=== PATIENT | female | born 1955 | race Caucasian/White ===

== ENCOUNTER 2021-08-16 23:06 | Observation (INO) | payer SELFPAY ==
[2021-08-16 23:07] VITALS: BP 124/54; PULSE 96; RESP 20; TEMP 36.6; O2SAT 93; BMI 29.2
[2021-08-16 23:10] VITALS: O2SAT 88
--- NOTE | 2021-08-16 23:10 | ED.RN ---
PATIENT'S OXGYEN SATURATION ORIGINALLY WAS 88-89% ON ROOM AIR. ONCE PATIENT SAT FOR A FEW MINUTES OXYGEN SATURATION UP TO 93%.
[2021-08-17] VITALS (17 sets, daily range): BP systolic 95–118; BP diastolic 41–80; PULSE 78–105; RESP 18–22; TEMP 36.5–36.9; O2SAT 94–98; BMI 31.1
--- NOTE | 2021-08-17 01:40 | RAD_ITS ---
STUDY: X-RAY CHEST REASON FOR EXAM: Female, 66 years old. dyspnea TECHNIQUE: Single AP portable view of the chest. COMPARISON: None. FINDINGS: Ill-defined subpleural groundglass opacities are seen more prominent in the lung bases , may represent atypical pneumonia or viral pneumonia (COVID-19 ?). There is small right pleural effusion. Normal size heart. Normal mediastinum and daniel. Normal visualized pulmonary arteries. Normal visualized aortic arch and descending thoracic aorta. Normal visualized thoracic spine. Normal visualized ribs, clavicles, and shoulders. There is no demonstrated abnormality of the visualized soft tissue structures of the upper abdomen. RAD/Chest 1 View (Portable) IMPRESSION: Ill-defined subpleural groundglass opacities are seen more prominent in the lung bases , may represent atypical pneumonia or viral pneumonia (COVID-19 ?). There is small right pleural effusion. Electronically Signed: Chhaya Pascual MD at 2:13 EDT ,
--- NOTE | 2021-08-17 01:41 | EKG12_ITS ---
Test Reason : SOB Blood Pressure : / mmHG Vent. Rate : 088 BPM Atrial Rate : 182 BPM P-R Int : 000 ms QRS Dur : 086 ms QT Int : 398 ms P-R-T Axes : 000 074 028 degrees QTc Int : 481 ms Atrial fibrillation Nonspecific ST and T wave abnormality Abnormal ECG Confirmed by MARCEL GIVENS, STEPHANIE ([id number]), sports editor ESTELLA KELLY ([id number]) on 08/21/2021 9:49:51 AM Referred By: Confirmed By:KOJO ROD MD
[2021-08-17 02:03] LABS: Basophil# 0.05 X10^3/uL; Basophil% 0.5 % (0-1); Eosinophil# 0.12 X10^3/uL; Eosinophils% 1.3 % (0-5); Hematocrit 36.9 % (37-47); Hemoglobin 12.5 g/dL (12.0-15.0); Lymphocyte % 21.9 % (19-41); Mean Corp Hgb Conc 33.9 g/dL (32-36); Mean Corpuscular Hgb 32.1 pg (27.0-32.0); Mean Corpuscular Volume 94.6 fL (81-99); Mean Platelet Vol. 10.5 fl (6.2-12.0); Monocyte# 2.25 X10^3/uL; Monocyte% 23.5 % (0-10); NRBC Flagged by Analyzer 0 % (0-5); Neutrophil # 4.95 X10^3/uL (2.7-7.7); Neutrophil % 51.8 % (47-70); POSITIVE DIFFERENTIAL YES; Platelet Count 148 K/mm3 (150-450); RBC Distribution Width CV 14.7 % (11.6-14.6); RBC Distribution Width SD 51.8 fl (35.1-43.9); White Blood Count 9.6 K/mm3 (4.4-11.0)
[2021-08-17 02:08] LABS: Differential Indicated SCAN CRITERIA MET
[2021-08-17 02:20] LABS: International Normalized Ratio 1.3; Partial Thromboplast Time 33.5 Seconds (24.1-36.2); Prothrombin Time (Protime)PT. 15.3 SECONDS (11.7-14.9)
[2021-08-17 02:22] LABS: BNP,B-Type NATRIURETIC PEPTIDE 405.7 pg/mL (0-100)
[2021-08-17 02:24] LABS: Anion Gap 9 (5-15); BUN 13 mg/dL (7-18); BUN/Creat Ratio 13.7 RATIO (10-20); Calcium,Total 10.2 mg/dL (8.5-10.1); Chloride 104 mmol/L (98-107); Creatinine, Serum 0.95 mg/dL (0.55-1.02); EST Glomerular Filtration Rate 63 mL/min (>60); Est Glom Filt Rate - Afr Amer 76 mL/min (>60); Estimated Creatinine Clearance 46.07 ml/min; Glucose 106 mg/dL (74-106); Potassium 3.6 mmol/L (3.5-5.1); Sodium Level 135 mmol/L (136-145); Troponin-I HS 5 pg/mL (3.0-54.0)
[2021-08-17 02:25] LABS: Lactic Acid 1.3 mmol/L (0.4-1.9)
[2021-08-17 02:30] LABS: Procalcitonin 0.09 ng/mL (0.00-0.09)
[2021-08-17] MEDS: Ketorolac 15 MG/ML Vial IV (03:54)
--- NOTE | 2021-08-17 04:04 | HP.PCM.HOS_ITS ---
HPI - General General Date of Admission: 08/17/21 HPI Narrative MICHAEL TAYLOR, is a 66 F with a significant history of mitral valve prolapse; asthma; who presents to the emergency department with persistent shortness of breath that started on August 01 2021. Patient has completed a course of antibiotics for pneumonia. Associated with symptom is a productive cough which later became blood tinged. Further patient has nausea and vomiting. Because of pain in her left neck and left arm patient was referred to cardiology. Cardiology ordered a CTA chest scan which showed bilateral pleural effusion with right worse than left. Also the CTA chest showed some lytic lesions. Further CTA showed partial collapse of her right lung. Patient was referred to Dr. Robertson, exchange operator at [facility] and her appointment is on 08/17/2021 in the a.m. Of note patient reports that she and her got COVID-19 infection in June. At that time she coughed so hard that she broke her ribs. Since patient had Covid she has been monitoring her oxygen saturation at home. On the week of presentation her oxygen saturation at home was in the 80s. Emergent department doctor reported that on presentation patient oxygen saturation with ambulation was 87% on room air. Patient reports a history of a very small pericardial effusion with pneumonia in the past. [facility] Medical History Benign essential hypertension Brain TIA Diastolic heart failure Hyperlipidemia Insomnia Leukocytosis Mitral regurgitation Mitral valve prolapse PAF (paroxysmal atrial fibrillation) Pericardial effusion Pulmonary HTN Reactive airway disease Thoracic lymphadenopathy Thyroid lesion Home Medications amlodipine 5 mg tablet 5 mg PO DAILY 08/16/21 [History Last Taken Unknown] aspirin 81 mg tablet,delayed release 81 mg PO DAILY 08/16/21 [History Last Taken Unknown] furosemide 20 mg tablet 20 mg PO DAILY 08/16/21 [History Last Taken Unknown] levalbuterol tartrate 45 mcg/actuation aerosol inhaler 2 inh INHALATION Q4H PRN g 08/16/21 [History Last Taken Unknown] lorazepam 0.5 mg tablet 0.5 mg PO QHS 08/16/21 [History Last Taken Unknown] metoprolol tartrate 50 mg tablet 50 mg PO BID 08/16/21 [History Last Taken Unknown] mometasone 1 inh INHALATION QPM 08/16/21 [History Last Taken Unknown] spironolactone 25 mg tablet 12.5 mg PO DAILY tab 08/16/21 [History Last Taken Unknown] Allergy/AdvReac Type Severity Reaction Status Date / Time albuterol Allergy Unknown Tachycardia Verified 08/16/21 23:12 duloxetine [From Cymbalta] Allergy Unknown Unknown Verified 08/16/21 23:12 imipramine [From Tofranil] Allergy Unknown Unknown Verified 08/16/21 23:12 lisinopril Allergy Unknown Irregular Verified 08/16/21 23:12 Heart Beat nortriptyline [From Pamelor] Allergy Unknown Unknown Verified 08/16/21 23:12 pseudoephedrine Allergy Unknown Hypertensio Verified 08/16/21 23:12 [From Sudafed] n Family History Brother Hx of CABG, Onset Age: 58 Brother Hx of CABG, Onset Age: 68 Mother Myocardial infarction, Onset Age: 56 Surgical History H/O right heart catheterization Social History Smoking Status: Never smoker alcohol intake: never substance use type: does not use ROS ROS Narrative Constitutional: Reports weight loss of about 10 pounds that started after patient had COVID-19 infection in June 2021. Reports anorexia denies fever, chills. Eyes: Denies blurry vision, change in eye color, change in vision, discharge from eye(s), double vision, erythema, eye pain, loss of vision or other HEENT: Denies abnormal hearing, dysphagia, ear pain, epistaxis, headache(s), hearing loss, nasal congestion, nasal discharge, post nasal drip, sinus pressure, sore throat or other Cardiovascular: Report palpitations. Reports orthopnea. Denies paroxysmal n octurnal dyspnea. Respiratory/Chest: Reports productive cough of blood-tinged sputum. Reports sh ortness of breath. Report wheezes. Gastrointestinal: Denies abdominal pain, coffee ground emesis, constipation, diarrhea, dyspepsia, hematemesis, hematochezia, loose stools, melena, nausea, vomiting or other Genitourinary: Denies burning urination, difficulty urinating, dysuria, hematuria, nocturia, urinary frequency, urinary hesitancy, urinary incontinence, urinary urgency or other Musculoskeletal: Denies arthralgias, back pain, joint pain, joint stiffness, joint swelling, myalgias, neck pain or other Neurologic: Denies abnormal gait, abnormal speech, confusion, disequilibrium, dizziness, focal weakness, headache(s), numbness, paresthesias, seizure-like activity, seizures, syncope, tingling, tremor(s) or other Psychiatric: Denies anxiety, depression, homicidal ideation, suicidal ideation or other Endocrinology: Denies change in body appearance, cold intolerance, excessive sweating, heat intolerance, polydipsia, polyuria or other Hematologic/Lymphatic: Denies anemia, easy bleeding, easy bruising, lymphadenopathy or other Integumentary: Denies rashes Allergic/Immunologic: Denies rhinitis, hives, eczema, or other Vital Signs Vital Signs Vital Signs: 08/16/21 23:07 08/16/21 23:10 08/17/21 00:54 Temperature 97.9 F Temperature Source Temporal Pulse Rate 96 95 Respiratory Rate 20 H 21 H Respiratory Effort Normal Respiratory Depth Normal Respiratory Pattern Normal Blood Pressure 124/54 H 116/80 Blood Pressure Mean 77 92 Pulse Ox 93 88 97 Oxygen Delivery Method Room Air Room Air Room Air Oxygen Flow Rate (L/min) 08/17/21 03:08 Temperature Temperature Source Pulse Rate 86 Respiratory Rate 18 Respiratory Effort Respiratory Depth Respiratory Pattern Blood Pressure 108/66 Blood Pressure Mean 80 Pulse Ox 97 Oxygen Delivery Method Nasal Cannula Oxygen Flow Rate (L/min) 2 Weight Weight: 72.575 kg Body Mass Index (BMI) 29.2 Results Lab / Micro Data Result Diagrams: 08/17/21 01:55 08/17/21 01:55 Labs: Laboratory Results - last 24 hr 08/17/21 01:55: WBC 9.6, RBC 3.90 L, Hgb 12.5, Hct 36.9 L, MCV 94.6, MCH 32.1 H, MCHC 33.9, RDW Std Deviation 51.8 H, RDW Coeff of Herminio 14.7 H, Plt Count 148 L, MPV 10.5, Immature Gran % (Auto) 1.000 H, Neut % (Auto) 51.8, Lymph % (Auto) 21.9, [place] % (Auto) 23.5 H, Eos % (Auto) 1.3, Baso % (Auto) 0.5, Absolute Neuts (auto) 5.0, Absolute Lymphs (auto) 2.10, Nucleated RBC % 0 08/17/21 01:55: Sodium 135 L, Potassium 3.6, Chloride 104, Carbon Dioxide 22.0, Anion Gap 9, BUN 13, Creatinine 0.95, Estim Creat Clear Calc 46.07, Est GFR (MDRD) Af Amer 76, Est GFR (MDRD) Non-Af 63, BUN/Creatinine Ratio 13.7, Glucose 106, Calcium 10.2 H, Magnesium 2.0, Troponin I High Sens 5 08/17/21 01:55: Lactic Acid 1.3 08/17/21 01:55: B-Natriuretic Peptide 405.7 H 08/17/21 01:55: Procalcitonin 0.09 08/17/21 01:55: PT 15.3 H, INR 1.3, APTT 33.5 Radiology Impression Chest X-Ray 08/17/21 01:40 IMPRESSION: Ill-defined subpleural groundglass opacities are seen more prominent in the lung bases , may represent atypical pneumonia or viral pneumonia (COVID-19 ?). There is small right pleural effusion. Electronically Signed: Chhaya Pascual MD at 2:13 EDT , Assessment & Plan Assessment/Plan (1) Pleural effusion: PLAN: Pleural effusion Chest x-ray on presentation was visualized and independently interpreted and I agree with radiologist interpretation. CTA reports that on [facility] on 08/09/[address] showed moderate right pleural effusion and small left pleural effusion with adjacent compressive atelectasis. Mucoid impaction of right lower lobe bronchus with resultant partial collapse of the right lower lobe. Also lytic lesions were s een. CBC reviewed showed normal white count but with bandemia of 1% and monocytosis of 23.5%. We will observe patient at progressive care unit. Ultrasound of right pleural space with diagnostic studies ordered. Serum LDH and protein ordered to check light criteria. Cytology of pleural fluid ordered. PT/INR review showed a PT of 15.3, INR of 1.3. Mucinex ordered Pulmonology consult. Recently started on Lasix dose and spironolactone by cardiology, continued. Atrial fibrillation with controlled ventricular response Placed on progressive care unit on telemetry. Metoprolol continued. Currently patient is on aspirin and is having further discussion with cardiology on starting anticoagulation. DVT prophylaxis: SCD ordered Charges/Coding Visit Charges OBSV E&M: 52352 Initial observation care L3
--- NOTE | 2021-08-17 04:15 | EDS_ITS ---
HPI History of Present Illness Chief Complaint: Shortness of Breath Narrative Narrative: Patient is a 66-year-old female who was recently diagnosed with atrial fibrillation in the past few weeks. She states that she has been having increased shortness of breath over the past few weeks as well and was sent to an outside hospital about 7 days ago where she had a CTA of her chest. That showed fluid in her lung which could be inflammatory or infectious in nature. Patient states she was started on antibiotics and Lasix secondary to this. She states she been taking the medications as directed but has been feeling increased shortness of breath over the last 1 to 2 days. She does state the symptoms seem to worsen if she ambulates or lies flat. The patient states that she is not on oxygen at home and has had no history of lung disorder in the past [facility] Medical History Benign essential hypertension Brain TIA Diastolic heart failure Hyperlipidemia Insomnia Leukocytosis Mitral regurgitation Mitral valve prolapse PAF (paroxysmal atrial fibrillation) Pericardial effusion Pulmonary HTN Reactive airway disease Thoracic lymphadenopathy Thyroid lesion Home Medications amlodipine 5 mg tablet 5 mg PO DAILY 08/16/21 [History Last Taken Unknown] aspirin 81 mg tablet,delayed release 81 mg PO DAILY 08/16/21 [History Last Taken Unknown] furosemide 20 mg tablet 20 mg PO DAILY 08/16/21 [History Last Taken Unknown] levalbuterol tartrate 45 mcg/actuation aerosol inhaler 2 inh INHALATION Q4H PRN g 08/16/21 [History Last Taken Unknown] lorazepam 0.5 mg tablet 0.5 mg PO QHS 08/16/21 [History Last Taken Unknown] metoprolol tartrate 50 mg tablet 50 mg PO BID 08/16/21 [History Last Taken Unknown] mometasone 1 inh INHALATION QPM 08/16/21 [History Last Taken Unknown] spironolactone 25 mg tablet 12.5 mg PO DAILY tab 08/16/21 [History Last Taken Unknown] Allergy/AdvReac Type Severity Reaction Status Date / Time albuterol Allergy Unknown Tachycardia Verified 08/17/21 06:43 duloxetine [From Cymbalta] Allergy Unknown Unknown Verified 08/17/21 06:43 imipramine [From Tofranil] Allergy Unknown Unknown Verified 08/17/21 06:43 lisinopril Allergy Unknown Irregular Verified 08/17/21 06:43 Heart Beat nortriptyline [From Pamelor] Allergy Unknown Unknown Verified 08/17/21 06:43 pseudoephedrine Allergy Unknown Hypertensio Verified 08/17/21 06:43 [From Sudafed] n Family History Brother Hx of CABG, Onset Age: 58 Brother Hx of CABG, Onset Age: 68 Mother Myocardial infarction, Onset Age: 56 Surgical History H/O right heart catheterization Social History Smoking Status: Never smoker alcohol intake: never substance use type: does not use ROS ROS ED Constitutional Constitutional ED: Denies chills or fever(s) ENT ENT ED: Denies sore throat Cardiovascular Cardiovascular: Reports palpitations; Denies chest pain Respiratory/Chest Respiratory/Chest: Reports cough, dyspnea, dyspnea on exertion and sputum Gastrointestinal Gastrointestinal: Denies abdominal pain, diarrhea, nausea or vomiting Genitourinary Genitourinary ED: Denies dysuria Musculoskeletal Musculoskeletal: Denies myalgias Integumentary Denies rash Neurologic Neurologic: Denies headache(s) Hematologic/Lymphatic Hematologic/Lymphatic: Denies easy bleeding or easy bruising EXAM Physical Exam Const Vital Signs: 08/16/21 23:07 08/16/21 23:10 08/17/21 00:54 Temperature 97.9 F Temperature Source Temporal Pulse Rate 96 95 Respiratory Rate 20 H 21 H Respiratory Effort Normal Respiratory Depth Normal Respiratory Pattern Normal Blood Pressure 124/54 H 116/80 Blood Pressure Mean 77 92 Pulse Ox 93 88 97 Oxygen Delivery Method Room Air Room Air Room Air Oxygen Flow Rate (L/min) 08/17/21 03:08 Temperature Temperature Source Pulse Rate 86 Respiratory Rate 18 Respiratory Effort Respiratory Depth Respiratory Pattern Blood Pressure 108/66 Blood Pressure Mean 80 Pulse Ox 97 Oxygen Delivery Method Nasal Cannula Oxygen Flow Rate (L/min) 2 Positive well nourished, well developed and obese General Appearance ED: well developed Nutritional Appearance: obese HEENT Reports dry mucous membranes Mouth ED: Yes dry mucous membranes Mouth: dry mucous membranes Eyes PERRL and EOMs intact bilaterally Neck supple and no JVD Resp Resp Narrative: Patient has diminished breath sounds throughout with crackles present in the bilateral lower lobes and expiratory wheeze noted in the upper lobes bilaterally. She does have mild tachypnea and slight accessory muscle use as well Cardio regular rate Rate: other Other Details: Irregularly irregular rhythm with regular rate GI normal to inspection, nondistended, normoactive bowel sounds, non-tender, non- distended and no masses Auscultation: normoactive bowel sounds Palpation: soft Extremity Extremity Narrative: Trace pitting edema to the bilateral lower extremities that is equal and symmetric negative Homans' sign bilaterally Neuro oriented x3 and CN's II-XII intact bilaterally Sensorium / Orientation: alert Motor Exam: strength 5/5 throughout Psych mental status grossly normal Skin no rashes or lesions noted MDM MDM MDM Narrative Medical decision making narrative: Patient presented to the ER with mild respiratory distress such as tachypnea and accessory muscle use. Her A. fib is a recent diagnosis but has been known and currently she is rate controlled. Her pulse ox upon walking dropped to 87% and then improved to 92% at rest. However as she has known pleural effusion from her previous hospital visit approximately 7 days ago with CTA I have concern symptoms are worsening and therefore elected perform repeat labs and a chest x-ray. Chest x-ray can firmed that the pleural effusions are still present. It did question a possible atypical pneumonia but patient is afebrile does not have a white count or elevated pro calcitonin level. The CT also showed lytic lesions in the spine and chest most concerning for malignancy. Therefore at this time based on her laboratory studies and this read I feel that the fluid in her lungs is most likely from malignancy and not infection. As patient does require oxygen with ambulation I do not feel it is safe for her to be discharged and therefore should be kept in the hospital for further care Lab Data Attestation: I reviewed the patient's lab results. Labs: Laboratory Results - last 24 hr 08/17/21 08/17/21 08/17/21 01:55 01:55 01:55 WBC 9.6 RBC 3.90 L Hgb 12.5 Hct 36.9 L MCV 94.6 MCH 32.1 H MCHC 33.9 RDW Std Deviation 51.8 H RDW Coeff of Herminio 14.7 H Plt Count 148 L MPV 10.5 Immature Gran % (Auto) 1.000 H Neut % (Auto) 51.8 Lymph % (Auto) 21.9 [place] % (Auto) 23.5 H Eos % (Auto) 1.3 Baso % (Auto) 0.5 Absolute Neuts (auto) 5.0 Absolute Lymphs (auto) 2.10 Nucleated RBC % 0 PT INR APTT Sodium 135 L Potassium 3.6 Chloride 104 Carbon Dioxide 22.0 Anion Gap 9 BUN 13 Creatinine 0.95 Estim Creat Clear Calc 46.07 Est GFR (MDRD) Af Amer 76 Est GFR (MDRD) Non-Af 63 BUN/Creatinine Ratio 13.7 Glucose 106 Lactic Acid 1.3 Calcium 10.2 H Magnesium 2.0 Troponin I High Sens 5 B-Natriuretic Peptide Procalcitonin 08/17/21 08/17/21 08/17/21 01:55 01:55 01:55 WBC RBC Hgb Hct MCV MCH MCHC RDW Std Deviation RDW Coeff of Herminio Plt Count MPV Immature Gran % (Auto) Neut % (Auto) Lymph % (Auto) [place] % (Auto) Eos % (Auto) Baso % (Auto) Absolute Neuts (auto) Absolute Lymphs (auto) Nucleated RBC % PT 15.3 H INR 1.3 APTT 33.5 Sodium Potassium Chloride Carbon Dioxide Anion Gap BUN Creatinine Estim Creat Clear Calc Est GFR (MDRD) Af Amer Est GFR (MDRD) Non-Af BUN/Creatinine Ratio Glucose Lactic Acid Calcium Magnesium Troponin I High Sens B-Natriuretic Peptide 405.7 H Procalcitonin 0.09 Radiography Diagnostic Testing: Clinical Impression(s) from Imaging Studies Chest X-Ray 08/17/21 01:40 IMPRESSION: Ill-defined subpleural groundglass opacities are seen more prominent in the lung bases , may represent atypical pneumonia or viral pneumonia (COVID-19 ?). There is small right pleural effusion. Electronically Signed: Chhaya Pascual MD at 2:13 EDT , Discharge Plan Dx/Rx/DC Orders Clinical Impression: Pleural effusion, Atrial fibrillation, Dyspnea Disposition Disposition: Acute Care Hospital [facility] Discharge Date/Time: 08/17/21 05:03
--- NOTE | 2021-08-17 05:00 | US_ITS ---
PROCEDURE: ULTRASOUND GUIDED THORACENTESIS. CLINICAL INDICATION: Pleural effusion. PHYSICIAN: Winston Salcedo DO MEDICATIONS: 2% lidocaine administered subcutaneously for local anesthesia. ACCESS SITE: Right lower thorax, posterior approach. CATHETER: 5 [place] Citizen thoracentesis needle/catheter system. FLUID: Approximately 570 mL of clear yellow pleural fluid removed. COMPLICATIONS: None immediate. The risks, benefits, and alternatives to the procedure and sedation were explained to the patient. The specific risks of bleeding, infection, and pneumothorax requiring chest tube insertion were discussed and accepted. Written informed consent was obtained. PROCEDURE: Ultrasonographic evaluation of the right lower pleural space was carried out. An adequate pocket was identified. The patient was placed in the sitting, upright position. The overlying skin was prepped and draped in sterile fashion. 2% lidocaine was administered subcutaneously for local anesthesia. Under ultrasound guidance, a 5 [place] Citizen thoracentesis needle/catheter system was advanced into the right posterior lower pleural fluid collection. The inner stylet was removed and there was spontaneous flow of pleural fluid. Approximately 570 mL of clear yellow fluid was manually aspirated. The catheter was removed. Hemostasis was achieved and a sterile dressing was applied. 120 cc of the collected sample was sent to the laboratory for analysis, as requested by the referring clinician. The patient tolerated the procedure well, without immediate complications. A chest x-ray was ordered. No pneumothorax on the chest x-ray which is dictated separately. US/Thoracentesis W US IMPRESSION: Successful ultrasound-guided diagnostic and therapeutic thoracentesis. Electronically Signed: Winston Salcedo, at 15:03 EDT ,
[2021-08-17] MEDS: Budesonide Respules 0.5 MG/2 ML AMPUL.NEB. INHALATION ×2 (07:04→20:24)
[2021-08-17] MEDS: guaiFENesin 1,200 MG Tablet 1200 MG PO ×2 (09:02→21:01)
[2021-08-17] MEDS: Acetaminophen 325 MG Tablet 650 MG PO ×3 (09:02→23:54)
--- NOTE | 2021-08-17 09:33 | ECHOD_ITS ---
Reason For Study: PHTN Procedure This was a 2D Doppler, Color Flow transthoracic echocardiogram. Exam performed portable in patient room. Left Ventricle Normal LV size. The estimated ejection fraction is 60 %. Unable to assess diastolic dysfunction. No regional wall motion abnormalities noted. Right Ventricle Normal RV size. Normal systolic function. Atria The left atrium is moderately enlarged. The right atrium is moderately enlarged. No doppler evidence for ASD. Mitral Valve There is no mitral valve stenosis. Trivial mitral valve insufficiency. Tricuspid Valve There is no tricuspid stenosis. Mild tricuspid valve insufficiency. Pulmonary artery systolic pressure is 45 mmHg. Aortic Valve Trisinus/trileaflet aortic valve. There is no aortic stenosis. No aortic valve insufficiency. Pulmonic Valve There is no pulmonic valvular stenosis. No pulmonic valve insufficiency. Great Vessels Normal aortic root. Pericardium/Pleural No pericardial effusion. MMode/2D Measurements & Calculations LVIDd: 4.2 cm IVSd: 0.99 cm Ao root diam: 2.9 cm LVIDs: 2.7 cm LVPWd: 0.99 cm RVDd: 3.9 cm FS: 35.3 % LAV(MOD-bp): 78.9 ml LVAd ap4: 22.2 cm2 SV(MOD-sp4): 35.3 ml LAV(MOD-bp) Indexed: 44.2 ml/m2 LVLd ap4: 7.4 cm LAV(MOD-sp2): 68.8 ml EDV(MOD-sp4): 55.6 ml LAV(MOD-sp4): 90.3 ml EDV(sp4-el): 56.2 ml LVAs ap4: 12.5 cm2 LVLs ap4: 6.8 cm ESV(MOD-sp4): 20.4 ml ESV(sp4-el): 19.5 ml EF(MOD-sp4): 63.4 % EF(sp4-el): 65.3 % SV(sp4-el): 36.7 ml LA A4 area: 26.5 cm2 LA dimension(2D): 4.8 cm RA A4 area: 28.9 cm2 Doppler Measurements & Calculations MV E max ethan: 125.0 cm/sec Ao V2 max: 123.3 cm/sec LV V1 max: 95.0 cm/sec Ao max P.1 mmHg LV V1 max P.6 mmHg PA V2 max: 63.7 cm/sec TR max ethan: 300.5 cm/sec TR max P.1 mmHg ECHO/Echo Complete Interpretation Summary The estimated ejection fraction is 60 %. The left atrium is moderately enlarged. The right atrium is moderately enlarged. Trivial mitral valve insufficiency. Mild tricuspid valve insufficiency. Ordering Physician: Yosi Feliz Referring Physician: Vinayak Diane M.D. Performed By: Maureen Zamora RDCS
--- NOTE | 2021-08-17 09:39 | CON.PCM.CC_ITS ---
Assessment & Plan Assessment/Plan (1) Pleural effusion: (2) Dyspnea: PLAN: RECOMMENDATIONS: 1. Consider diuresis as patient tolerates 2. Obtain echocardiogram to evaluate pulmonary artery pressures 3. Walking oximetry prior to discharge 4. Attempt diagnostic and therapeutic thoracentesis 5. Consider initiation of anticoagulation after interventions 6. Complete PFT and sleep study as an outpatient IMPRESSIONS: 1. Dyspnea with right-sided pleural effusion and A. fib Review of the CT scan does not show significant fibrotic changes on 08/01/2021. Chest x-ray shows that the pleural effusion may be smaller today compared to previous. This may be secondary to increase in diuretics. Agree with attempting a therapeutic and diagnostic thoracentesis. Patient appears to have possible rib fractures in the past, but it is unclear if this is related to coughing. Patient may have some borderline bronchiectasis of the left lower lobe, but there is some compression artifact associated. Some consideration for pulmonary hypertension as the etiology of presentation. Unclear the type at this time, but patient does have a dilated pulmonary artery with a pleural effusion. Will obtain an echocardiogram for evaluation. Patient should have a walking oximetry prior to discharge. Patient will need a PFT and sleep study as an outpatient. Potential right heart catheterization pending results. Could continue Pulmicort twice daily as a therapeutic interchange for Asmanex, but presentation is not suggestive of obstructive lung disease. Further recommendations once thoracentesis is completed. Patient reports that she is seen a nail mill worker in the past 2. Obesity/probable CHF/hypertension/A. fib Complicates care, management, recovery and prognosis. Attempt to obtain old cardiology records. Patient likely should be anticoagulated once procedures are completed. Would not attempt cardioversion as patient has not been on anticoagulation previously. Defer to hospitalist on involvement of cardiology. HPI Consult Data Date of Consult: 08/17/21 HPI Narrative HPI Narrative: MICHAEL TAYLOR is a 66 F, with past medical history listed below, who presents to [facility] on 08/17/2021 secondary to progressive shortness of breath since August [id number]. Patient reportedly has been treated for pneumonia with antibiotics secondary to a cough productive of thick yellow to eventual blood 10 sputum. Patient also had some nausea and vomiting along with pain in her left neck and left arm. At that time, patient had a CTA of her chest showing a moderate pleural effusion and dilated pulmonary arteries. Patient was also found to have A. fib at that time. Patient was supposed to see Dr. Robertson in our office early this morning, but felt that she was getting too sick and came to the ER instead. Patient does report that she was recently placed on increased Lasix therapy by her nail mill worker/PCP and feels this was helpful. Patient states that she was unable to get her oxygen to stay above 88% even with resting. In the ER, patient was afebrile, normotensive and desaturated 88% on room air with exertion. Patient was placed on 2 L nasal cannula with improvement in saturations. Laboratory work-up showed a white blood cell count of 9.6, hemoglobin of 12.5 and platelets at 148. BMP was unremarkable. Lactate was normal. Calcium was slightly elevated at 10.2 with an INR of 1.3. BNP was elevated at 405.7. Chest x-ray showed right pleural effusion. EKG showed A. fib. Patient reports she does follow with a nail mill worker, but had not seen a supervisor roving department previously. Patient is a non-smoker, nondrinker and does not use any illicit drugs. 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 Patient does report that she was placed on Lasix twice daily secondary to lower extremity swelling since the CT was obtained, but overall feels that her breathing got worse after she had contracted COVID-19. Patient has never had a pulmonary function test, but is on Asmanex for reported asthma. Of note, patient only uses this at night. Patient states she has never had issues with desaturation until she had contracted COVID-19. Review of systems otherwise negative from a constitutional, HEENT, respiratory, cardiovascular, GI, genitourinary, musculoskeletal, skin, neurologic, psychiatric and hematologic system unless stated above. FORMERLY [facility], [facility] Medical History Benign essential hypertension Brain TIA Diastolic heart failure Hyperlipidemia Insomnia Leukocytosis Mitral regurgitation Mitral valve prolapse PAF (paroxysmal atrial fibrillation) Pericardial effusion Pulmonary HTN Reactive airway disease Thoracic lymphadenopathy Thyroid lesion Home Medications amlodipine 5 mg tablet 5 mg PO DAILY 08/16/21 [History Last Taken Unknown] aspirin 81 mg tablet,delayed release 81 mg PO DAILY 08/16/21 [History Last Taken Unknown] furosemide 20 mg tablet 20 mg PO DAILY 08/16/21 [History Last Taken Unknown] levalbuterol tartrate 45 mcg/actuation aerosol inhaler 2 inh INHALATION Q4H PRN g 08/16/21 [History Last Taken Unknown] lorazepam 0.5 mg tablet 0.5 mg PO QHS 08/16/21 [History Last Taken Unknown] metoprolol tartrate 50 mg tablet 50 mg PO BID 08/16/21 [History Last Taken Unknown] mometasone 1 inh INHALATION QPM 08/16/21 [History Last Taken Unknown] spironolactone 25 mg tablet 12.5 mg PO DAILY tab 08/16/21 [History Last Taken Unknown] lorazepam 0.5 mg PO Q6H PRN PRN 08/17/21 [History Last Taken Unknown] Allergy/AdvReac Type Severity Reaction Status Date / Time albuterol Allergy Unknown Tachycardia Verified 08/17/21 06:43 duloxetine [From Cymbalta] Allergy Unknown Unknown Verified 08/17/21 06:43 imipramine [From Tofranil] Allergy Unknown Unknown Verified 08/17/21 06:43 lisinopril Allergy Unknown Irregular Verified 08/17/21 06:43 Heart Beat nortriptyline [From Pamelor] Allergy Unknown Unknown Verified 08/17/21 06:43 pseudoephedrine Allergy Unknown Hypertensio Verified 08/17/21 06:43 [From Sudafed] n Family History Brother Hx of CABG, Onset Age: 58 Brother Hx of CABG, Onset Age: 68 Mother Myocardial infarction, Onset Age: 56 Surgical History H/O right heart catheterization Social History Smoking Status: Never smoker alcohol intake: never substance use type: does not use ROS ROS Narrative See HPI Physical Exam Const alert, oriented x3 and no apparent distress Constitutional Narrative: Sitting comfortably in the chair on my arrival General Appearance: cooperative and well developed Nutritional Appearance: obese HEENT normocephalic, head/scalp atraumatic and moist oral mucous membranes HEENT Narrative: Nasal cannula in place Eyes PERRL and EOMs intact bilaterally Neck full ROM and no lymphadenopathy Neck Narrative: Difficult to assess JVD secondary to body habitus General: Negative for tracheal deviation Chest inspection of chest normal Chest: symmetrical chest wall rise; Negative for crepitus Resp normal respiratory effort and no use of accessory muscles Effort and Inspection: able to speak in complete sentences Auscultation: clear to auscultation bilaterally; Negative for rales, rhonchi or wheezes Percussion: Negative for dullness Cardio regular rate, S1 normal heart sound, S2 normal heart sound, no murmurs, no rub and no gallops Rhythm: abnormal rhythm irregularly irregular GI normal to inspection, nondistended, normoactive bowel sounds no CVA tenderness Extremity General Extremity: edema bilateral (Trace) lower extremity; Negative for clubbing or cyanosis Skin no rashes or lesions noted Neuro oriented x3, CN's II-XII intact bilaterally, moves all extremities and no focal motor deficits Psych cooperative and affect normal Lab / Micro Data Result Diagrams: 08/17/21 01:55 08/17/21 01:55 Labs: Laboratory Results - last 24 hr 08/17/21 01:55: WBC 9.6, RBC 3.90 L, Hgb 12.5, Hct 36.9 L, MCV 94.6, MCH 32.1 H, MCHC 33.9, RDW Std Deviation 51.8 H, RDW Coeff of Herminio 14.7 H, Plt Count 148 L, MPV 10.5, Immature Gran % (Auto) 1.000 H, Neut % (Auto) 51.8, Lymph % (Auto) 21.9, [place] % (Auto) 23.5 H, Eos % (Auto) 1.3, Baso % (Auto) 0.5, Absolute Neuts (auto) 5.0, Absolute Lymphs (auto) 2.10, Nucleated RBC % 0 08/17/21 01:55: Sodium 135 L, Potassium 3.6, Chloride 104, Carbon Dioxide 22.0, Anion Gap 9, BUN 13, Creatinine 0.95, Estim Creat Clear Calc 46.07, Est GFR (MDRD) Af Amer 76, Est GFR (MDRD) Non-Af 63, BUN/Creatinine Ratio 13.7, Glucose 106, Calcium 10.2 H, Magnesium 2.0, Troponin I High Sens 5 08/17/21 01:55: Lactic Acid 1.3 08/17/21 01:55: B-Natriuretic Peptide 405.7 H 08/17/21 01:55: Procalcitonin 0.09 08/17/21 01:55: PT 15.3 H, INR 1.3, APTT 33.5 Radiology Impression Chest X-Ray 08/17/21 01:40 IMPRESSION: Ill-defined subpleural groundglass opacities are seen more prominent in the lung bases , may represent atypical pneumonia or viral pneumonia (COVID-19 ?). There is small right pleural effusion. Electronically Signed: Chhaya Pascual MD at 2:13 EDT , CT scan from 08/01/2021 was reviewed from [facility] using disc provided. Patient with large pleural effusion on the right with some compressi ve atelectasis. Borderline bronchiectasis on the left without significant groundglass opacities or fibrotic changes. Patient did have a dilated pulmonary artery. Charges/Coding Visit Charges Inpatient E&M: 18616 Init Hosp L2
[2021-08-17] MEDS: Aspirin E.C. 81 MG Tablet PO (10:25)
[2021-08-17] MEDS: Spironolactone 25 MG Tablet 12.5 MG PO (10:25)
[2021-08-17] MEDS: Furosemide 20 MG/2 ML VIAL IV ×2 (10:29→17:37)
[2021-08-17] MEDS: 0.9% Saline Lock 10 ML Syringe IV ×2 (10:29→17:37)
--- NOTE | 2021-08-17 13:38 | CHAPLAIN ---
Type of Pastoral Visit _x__ Initial Visit ___ Follow-up Visit ___ On-call Visit ___ General Patient Visit ___ Spiritual Assessment ___ Family Conference ___ Bereavement ___ Rapid Response ___ Code Blue ___ Other (describe below) Pastoral Care Referral From _x__ Patient ___ Family ___ Nurse ___ Physician ___ Customer Professional ___ Duck Operator ___ Other (describe below) Sacrament/Intervention _x__ Active listening ___ Anointing ___ Gnosticism ___ Bereavement ___ Communion _x__ Sneha exploration ___ ___ Life review _x__ Prayer ___ Reconciliation ___ Sacrament of Sick _x__ Supportive presence ___ Wedding ___ Other (describe below) Pastoral Comments patient is waiting for more tests to be done; pt admits to some anxiety but refers to her sneha and her trust in God; pt has good support through family and yazidism; prayer and presence is welcomed
[2021-08-17 13:53] LABS: ALB/GLOB Ratio 1.2 RATIO (0.9-2.4); Globulin 3.1 g/dL (2.2-4.2); LDH 273 U/L (84-246); Protein, Total 6.9 g/dL (6.4-8.2)
--- NOTE | 2021-08-17 13:55 | FLU_PTH ---
PATIENT: MICHAEL TAYLOR LOC: [facility] U#:[id number] AGE/SX: 66/F ROOM: [facility] RE08/17/[address]: Dr. Graeme Pierce DO : 1955 BED: 1 DIS: 08/18/2021 SPEC #: [id number] RECD: 08/17/21 14:20 STATUS: LEXI HARO #: [id number] ADRIANO: 08/17/21 13:[address]: Graeme Pierce DEPT: CYTOLOGY RECD BY: Nat Virgen ENTERED: 08/18/21 08:54 SP TYPE: Fluid OTHR DR: MD Dr. Yosi Rojas MD Dr. Joseph Agyepong, MD Tissues: Pleural fluid, NOS Procedures: Special Stain Group II Surgery Specimen Level IV Cytospin Fluid HEADER OPERATION: Ultrasound-guided thoracentesis, right PRE-OP DIAGNOSIS: Right pleural effusion TISSUE SUBMITTED: Thoracentesis fluid for cytology DIAGNOSIS CYTOLOGY Thoracentesis fluid for cytology (cytospin and cell block): Negative for malignant cells. See comment. AARON:gaby 08/21/2021 COMMENT Clinical correlation and appropriate follow up are necessary. CYTOLOGY STUDY Slides are reviewed. CYTOLOGY GROSS Received is 60 ml of yellow/gold cloudy fluid labeled with the patient's name and and designated per the requisition as thoracentesis. Submitted for cytology preparation including cell block. / gaby 08/18/2021 TC:5 CPT: 39063, 07496
--- NOTE | 2021-08-17 14:05 | RAD_ITS ---
INDICATION: pneumothorax -- immediately post-thoracentesis EXAMINATION/TECHNIQUE: X-RAY - XR Chest 2 Views COMPARISON: None. FINDINGS/ RAD/Chest Insp/Exp 2 View IMPRESSION: Support devices: None. Minimal residual right-sided pleural effusion status post thoracentesis. Aeration of the lungs is unchanged with no sizable pneumothorax. Heart size is stable. Bones and soft tissues are unchanged. Electronically Signed: Winston Salcedo, at 14:46 EDT ,
--- NOTE | 2021-08-17 14:05 | PCM.PN.HOSP ---
Subjective Subjective Breathing well. Objective Data Objective Data Vital Signs: Vital Signs Temp Pulse Resp BP Pulse Ox 36.7 C 88 18 108/68 97 08/17/21 12:05 08/17/21 12:05 08/17/21 12:05 08/17/21 12:05 08/17/21 12:05 Oxygen Flow Rate (L/min) 2 Oxygen Delivery Method Nasal Cannula Weight: 77.3 kg Body Mass Index (BMI) 31.1 Intake & Output: Intake and Output for Last 24 Hours 08/15/21 08/16/21 08/17/21 23:59 23:59 23:59 Intake Total 600 / 600 Output Total 0 / 0 Balance 600 / 600 Lab / Micro Data Result Diagrams: 08/17/21 01:55 08/17/21 01:55 Labs: Laboratory Results - last 24 hr 08/17/21 01:55: WBC 9.6, RBC 3.90 L, Hgb 12.5, Hct 36.9 L, MCV 94.6, MCH 32.1 H, MCHC 33.9, RDW Std Deviation 51.8 H, RDW Coeff of Herminio 14.7 H, Plt Count 148 L, MPV 10.5, Immature Gran % (Auto) 1.000 H, Neut % (Auto) 51.8, Lymph % (Auto) 21.9, [place] % (Auto) 23.5 H, Eos % (Auto) 1.3, Baso % (Auto) 0.5, Absolute Neuts (auto) 5.0, Absolute Lymphs (auto) 2.10, Nucleated RBC % 0 08/17/21 01:55: Sodium 135 L, Potassium 3.6, Chloride 104, Carbon Dioxide 22.0, Anion Gap 9, BUN 13, Creatinine 0.95, Estim Creat Clear Calc 46.07, Est GFR (MDRD) Af Amer 76, Est GFR (MDRD) Non-Af 63, BUN/Creatinine Ratio 13.7, Glucose 106, Calcium 10.2 H, Magnesium 2.0, Troponin I High Sens 5 08/17/21 01:55: Lactic Acid 1.3 08/17/21 01:55: B-Natriuretic Peptide 405.7 H 08/17/21 01:55: Procalcitonin 0.09 08/17/21 01:55: PT 15.3 H, INR 1.3, APTT 33.5 08/17/21 01:55: Lactate Dehydrogenase 273 H, Total Protein 6.9, Globulin 3.1, Albumin/Globulin Ratio 1.2 Radiography Diagnostic Testing: Radiology Impression Chest X-Ray 08/17/21 01:40 IMPRESSION: Ill-defined subpleural groundglass opacities are seen more prominent in the lung bases , may represent atypical pneumonia or viral pneumonia (COVID-19 ?). There is small right pleural effusion. Electronically Signed: Chhaya Pascual MD at 2:13 EDT , Echocardiogram 08/17/21 09:33 Interpretation Summary The estimated ejection fraction is 60 %. The left atrium is moderately enlarged. The right atrium is moderately enlarged. Trivial mitral valve insufficiency. Mild tricuspid valve insufficiency. Ordering Physician: Yosi Feliz Referring Physician: Vinayak Diane M.D. Performed By: Maureen Zamora RDCS Physical Exam Const alert HEENT head/scalp atraumatic Head and Scalp: normocephalic Eyes PERRL Neck Neck Narrative: +JVD Resp normal respiratory effort Resp Narrative: bilateral crackles. Cardio regular rate, regular rhythm, S1 normal heart sound and S2 normal heart sound GI normal to inspection, nondistended, normoactive bowel sounds, soft to palpation, non-tender and non-distended Extremity normal to inspection Assessment & Plan Assessment/Plan (1) Pleural effusion: (2) (HFpEF) heart failure with preserved ejection fraction: QUALIFIERS: Heart failure chronicity: acute Qualified Code(s): I50.31 - Acute diastolic (congestive) heart failure PLAN: 1. Acute heart failure preserved ejection fraction Change furosemide to IV and continue with diuresis Continue spironolactone 2. Pleural effusion Likely transudate of and rather small Thoracentesis been ordered 3. Chronic A. fib on metoprolol Charges/Coding Visit Charges OBSV E&M: 15718 Subsequent observation care L2
[2021-08-17 14:44] LABS: Cytology, Body Fluid / CSF SEE PATHOLOGY REPORT
[2021-08-17 14:55] LABS: Glucose, Body Fluid 124 mg/dL (40-70)
[2021-08-17 14:58] LABS: Body Fluid Mononuclear WBC # 0.342 10^3/uL; Body Fluid Mononuclear WBC % 98.3 %; Body Fluid Polynuclear WBC # 0.006 10^3/uL; Body Fluid Polynuclear WBC % 1.7 %; Body Fluid Total Cells Counted 0.886 10^3/ul; White Blood Count/Body Fluid 0.348 10^3/uL
[2021-08-17 15:01] LABS: LDH,Body Fluid 89 Units/l (Not Establ.); Protein, Body Fluid 2.4 g/dL (Not Establ.)
[2021-08-17 15:52] LABS: Lymphocytes 14 %; Mesothelial Cells 78 %; Monocytes 8 %
[2021-08-17 15:53] LABS: Appearance/Body Fluid SL CLDY; Auto B Fluid Analyzer BKGD Ct COUNTS W/IN LIMITS (W/IN LIMITS); Color/Body Fluid YELLOW; Source- Body Fluid PLEURAL FLUID/RIGHT
[2021-08-17 15:54] LABS: Red Cell Count/Body Fluid 542 /mm3
[2021-08-17 15:55] LABS: Body Fluid QC Type(s) BF4Q
[2021-08-17] MEDS: Metoprolol Tartrate 50 MG Tablet PO (21:01)
[2021-08-17] MEDS: LORazepam 0.5 MG Tablet PO (21:01)
[2021-08-18] VITALS (7 sets, daily range): BP systolic 96–124; BP diastolic 52–61; PULSE 76–88; RESP 18–20; TEMP 36.2–36.6; O2SAT 94–98
[2021-08-18 05:55] LABS: Anion Gap 4 (5-15); BUN 13 mg/dL (7-18); BUN/Creat Ratio 16.2 RATIO (10-20); Calcium,Total 9.4 mg/dL (8.5-10.1); Chloride 109 mmol/L (98-107); EST Glomerular Filtration Rate 76 mL/min (>60); Est Glom Filt Rate - Afr Amer 92 mL/min (>60); Estimated Creatinine Clearance 54.71 ml/min; Glucose 98 mg/dL (74-106); Potassium 3.4 mmol/L (3.5-5.1); Sodium Level 140 mmol/L (136-145)
[2021-08-18] MEDS: Budesonide Respules 0.5 MG/2 ML AMPUL.NEB. INHALATION (06:48)
[2021-08-18] MEDS: Acetaminophen 325 MG Tablet 650 MG PO (07:53)
[2021-08-18] MEDS: Aspirin E.C. 81 MG Tablet PO (07:53)
--- NOTE | 2021-08-18 08:28 | PN.CC_ITS ---
Assessment & Plan Assessment/Plan (1) Pleural effusion: (2) Dyspnea: PLAN: RECOMMENDATIONS: 1. If requires supplemental oxygen, diuresis 2. Obtain walking oximetry. 3. Potential discharge if no need for supplemental oxygen 4. Consider anticoagulation 5. Follow-up in our office 2 to 4 weeks after discharge with nurse practitioner 6. Complete PFT and sleep study as an outpatient IMPRESSIONS: 1. Dyspnea with right-sided pleural effusion and A. fib Pleural effusion was relatively small at around 600 cc, but does have a t ransudate pattern. This would be consistent with congestive heart failure as an etiology. Patient does have elevated pulmonary artery pressures. Patient will need a walking oximetry prior to discharge. If no supplemental oxygen is required, patient could be discharged with outpatient follow-up. However, if patient requires supplemental oxygen, aggressive diuresis with electrolyte repletion would be indicated. Patient likely needs a complete PFT and sleep study as an outpatient to look for secondary issues. Patient may need supplemental oxygen for a while as recurrent hypoxia can lead to elevated pulmonary artery pressures and will take time to improve. However, this is typically amenable to diuresis. 2. Obesity/probable CHF/hypertension/A. fib Complicates care, management, recovery and prognosis. Attempt to obtain old cardiology records. Patient likely should be anticoagulated once procedures are completed. Would not attempt cardioversion as patient has not been on anticoagulation previously. Defer to hospitalist on involvement of cardiology. Subjective Subjective Patient did well overnight. Patient reporting mild improvement in overall symptoms following thoracentesis. Patient is reporting soreness in the area. Patient's cough appears to be improved, but she is subjectively stating that it is constant. Objective Data Objective Data Vital Signs: Vital Signs Temp Pulse Resp BP Pulse Ox 36.2 C L 76 18 124/52 H 98 08/18/21 03:00 08/18/21 06:59 08/18/21 03:00 08/18/21 03:00 08/18/21 03:00 Oxygen Flow Rate (L/min) [5] 2 Oxygen Flow Rate (L/min) [4] 2 Oxygen Flow Rate (L/min) [3] 2 Oxygen Flow Rate (L/min) [2] 2 Oxygen Flow Rate (L/min) [1 ( 2 Initial Baseline)] Oxygen Flow Rate (L/min) 2 Oxygen Delivery Method [5] Nasal Cannula Oxygen Delivery Method [4] Nasal Cannula Oxygen Delivery Method [3] Nasal Cannula Oxygen Delivery Method [2] Nasal Cannula Oxygen Delivery Method [1 ( Nasal Cannula Initial Baseline)] Oxygen Delivery Method Nasal Cannula Weight: 77.3 kg Body Mass Index (BMI) 31.1 Intake & Output: Intake and Output for Last 24 Hours 08/16/21 08/17/21 08/18/21 23:59 23:59 23:59 Intake Total 960 / 1320 360 / 360 Output Total 570 / 570 0 / 0 Balance 390 / 750 360 / 360 Lab / Micro Data Result Diagrams: 08/17/21 01:55 08/18/21 04:56 Labs: Laboratory Results - last 24 hr 08/17/21 01:55: Lactate Dehydrogenase 273 H, Total Protein 6.9, Globulin 3.1, Albumin/Globulin Ratio 1.2 08/17/21 13:55: Fluid Glucose 124 H 08/17/21 13:55: Fluid Total Protein 2.4, Fluid LDH 89 08/17/21 14:31: Fluid Source PLEURAL FLUID/RIGHT, Fluid Color YELLOW, Fluid Appearance SL CLDY, Fluid WBC 0.348, Fluid RBC 542, Fluid Tot Cell Count 0.886 H , Fld Polynuclear WBCs # 0.006, Fld Polynuclear WBCs % 1.7, Fluid Mononuclear WBCs 0.342, Fld Mononuclear WBCs % 98.3, Fluid Lymphocytes 14, Fluid Monocytes 8, Fld Mesothelial Cells 78, Fl Pathologist Comment May follow, Fluid Comment 2 SEE COMMENT 08/18/21 04:56: Sodium 140, Potassium 3.4 L, Chloride 109 H, Carbon Dioxide 27.0, Anion Gap 4 L, BUN 13, Creatinine 0.80, Estim Creat Clear Calc 54.71, Est GFR (MDRD) Af Amer 92, Est GFR (MDRD) Non-Af 76, BUN/Creatinine Ratio 16.2, Glucose 98, Calcium 9.4 Radiography Diagnostic Testing: Radiology Impression Thoracentesis Ultrasound 08/17/21 05:00 IMPRESSION: Successful ultrasound-guided diagnostic and therapeutic thoracentesis. Electronically Signed: Winston Salcedo, at 15:03 EDT , Echocardiogram 08/17/21 09:33 Interpretation Summary The estimated ejection fraction is 60 %. The left atrium is moderately enlarged. The right atrium is moderately enlarged. Trivial mitral valve insufficiency. Mild tricuspid valve insufficiency. Ordering Physician: Yosi Feliz Referring Physician: Vinayak Diane M.D. Performed By: Maureen Zamora RDCS Chest X-Ray 08/17/21 14:05 IMPRESSION: Support devices: None. Minimal residual right-sided pleural effusion status post thoracentesis. Aeration of the lungs is unchanged with no sizable pneumothorax. Heart size is stable. Bones and soft tissues are unchanged. Electronically Signed: Winston Salcedo, at 14:46 EDT , Physical Exam Const alert, oriented x3 and no apparent distress Constitutional Narrative: Resting comfortably in the bed General Appearance: cooperative and well developed Nutritional Appearance: obese HEENT normocephalic, head/scalp atraumatic and moist oral mucous membranes HEENT Narrative: Nasal cannula in place Eyes PERRL and EOMs intact bilaterally Neck full ROM and no lymphadenopathy Neck Narrative: Difficult to assess JVD secondary to body habitus General: Negative for tracheal deviation Chest inspection of chest normal Chest: symmetrical chest wall rise; Negative for crepitus Resp normal respiratory effort and no use of accessory muscles Effort and Inspection: able to speak in complete sentences Auscultation: clear to auscultation bilaterally; Negative for rales, rhonchi or wheezes Percussion: Negative for dullness Cardio regular rate, S1 normal heart sound, S2 normal heart sound, no murmurs, no rub and no gallops Rhythm: abnormal rhythm irregularly irregular GI normal to inspection, nondistended, normoactive bowel sounds no CVA tenderness Extremity General Extremity: edema bilateral (Trace) lower extremity; Negative for clubbing or cyanosis Skin no rashes or lesions noted Neuro oriented x3, CN's II-XII intact bilaterally, moves all extremities and no focal motor deficits Psych cooperative and affect normal Charges/Coding Visit Charges Inpatient E&M: 85937 Subs Hosp L2
[2021-08-18] MEDS: guaiFENesin 1,200 MG Tablet 1200 MG PO (09:04)
[2021-08-18] MEDS: Spironolactone 25 MG Tablet 12.5 MG PO (09:04)
--- NOTE | 2021-08-18 09:30 | CASEMGMT ---
Pt does not qualify for home oxygen at discharge. Pt voices no further questions/concerns/needs. Rand DUNN CM
[2021-08-18] MEDS: Furosemide 20 MG/2 ML VIAL IV (10:13)
[2021-08-18] MEDS: 0.9% Saline Lock 10 ML Syringe IV (10:13)
--- NOTE | 2021-08-18 12:09 | PCM.DC ---
Discharge Instructions Diet Discharge Diet: Low fat / Low cholesterol and 8 Cup Fluid Restriction Activity Discharge Activity: Return to Normal Activity Dressing / Incision Call your doctor if you observe: Swelling in the ankles Follow Up Care Please Follow Up With: Cardiology When: 2-4 weeks Test Results: Test results from this visit will be discussed in further detail at your follow-up appointment, if applicable. Discharge Plan Admission Admit Date/Time: 08/17/21 03:54 Primary Reason for Your Visit: pleural effusion. CHF Attending Provider: Graeme Pierce Primary Care Provider: Vinayak Diane Consulting Providers: Yosi Feliz Instructions Patient Instructions: Thoracentesis Dc, Heart Failure Meds, Heart Failure Signs of Flare-Up, Heart Failure: Tracking Your Weight, Heart Failure Dc, Heart Failure Discharge Orders/Prescriptions Prescriptions: Continued aspirin [Adult Aspirin Regimen] 81 mg tablet,delayed release (DR/EC) 81 mg PO DAILY RF: 0 levalbuterol tartrate 45 mcg/actuation HFA aerosol inhaler 2 inh inhalation Q4H PRN (Reason: Wheezing) RF: 0 lorazepam [Ativan] 0.5 mg tablet 0.5 mg PO QHS RF: 0 metoprolol tartrate 50 mg tablet 50 mg PO BID RF: 0 Asmanex Twisthaler 220 mcg/ actuation (30) aerosol powdr breath activated 1 inh inhalation QPM RF: 0 spironolactone 25 mg tablet 12.5 mg PO DAILY RF: 0 Changed furosemide 20 mg tablet 40 mg PO DAILY 30 Days Qty: 60 RF: 0 Discontinued amlodipine 5 mg tablet 5 mg PO DAILY RF: 0 lorazepam 0.5 mg Tablet 0.5 mg PO Q6H PRN PRN (Reason: anxiety or SOB) RF: 0 Referrals / Follow Up: [facility] [Provider Group] - None Vinayak Diane MD [Primary Care Provider] - Within 2 Weeks Disposition Disposition (needs filled in before D/C Order can be placed): Home, Self Care
--- NOTE | 2021-08-18 12:15 | DS.PCM_ITS ---
Providers Date of Admission: 08/17/21 Primary Care Physician: Dr. Vinayak Diane MD Consultations 08/17/21 05:00 Consult: Pointing Machine Operator / Pulmonary Medicine Routine Consulting Provider: Yosi Feliz Reason for Consult: R pleural effusion EMERGENT Consult: No MD Notified: Yes Date Notified: 08/17/21 Time Notified: 06:39 Method of Notification: Text Reason For Visit: R PLEURAL EFFUSION Diagnosis Discharge Diagnosis (1) Pleural effusion: Status: Acute Code(s): J90 - Pleural effusion, not elsewhere classified (2) Dyspnea: Status: Acute Code(s): R06.00 - Dyspnea, unspecified (3) (HFpEF) heart failure with preserved ejection fraction: Status: Acute Code(s): I50.30 - Unspecified diastolic (congestive) heart failure Qualifiers: Heart failure chronicity: acute Qualified Code(s): I50.31 - Acute diastolic (congestive) heart failure Medications at Discharge Home Medications aspirin 81 mg tablet,delayed release 81 mg PO DAILY 08/16/21 levalbuterol tartrate 45 mcg/actuation aerosol inhaler 2 inh INHALATION Q4H PRN g 08/16/21 lorazepam 0.5 mg tablet 0.5 mg PO QHS 08/16/21 metoprolol tartrate 50 mg tablet 50 mg PO BID 08/16/21 mometasone 1 inh INHALATION QPM 08/16/21 spironolactone 25 mg tablet 12.5 mg PO DAILY tab 08/16/21 furosemide 40 mg PO DAILY 30 Days #60 tab 08/18/21 Hospital Course Operations None Procedures 2-D Echocardiogram (The estimated ejection fraction is 60 %. The left atrium is moderately enlarged. The right atrium is moderately enlarged. Trivial mitral valve insufficiency. Mild tricuspid valve insufficiency.) and Thoracentesis Summary of Care Provided Minutes Spent on Discharge: 32 Hospital Course: This is a 66-year-old female presents with shortness of breath. Patient had CHF as well as a pleural effusion. Patient underwent thoracentesis that removed 500 cc of fluid and was transudate of in quality. Patient was all started on furosemide. Today, the patient is feeling much better. Patient has been seeing cardiology and will need to follow-up in regards to further manage ment of her CHF. Patient was on 20 mg of furosemide, patient will be on 40 mg moving forward as well as continue with spironolactone. Weight / BMI Weight Weight: 77.3 kg Body Mass Index (BMI) 31.1 ABG / Lab / Microbiology Data Result Diagrams: 08/17/21 01:55 08/18/21 04:56 Laboratory: Laboratory Results - last 24 hr 08/17/21 01:55: Lactate Dehydrogenase 273 H, Total Protein 6.9, Globulin 3.1, Albumin/Globulin Ratio 1.2 08/17/21 13:55: Fluid Glucose 124 H 08/17/21 13:55: Fluid Total Protein 2.4, Fluid LDH 89 08/17/21 14:31: Fluid Source PLEURAL FLUID/RIGHT, Fluid Color YELLOW, Fluid Appearance SL CLDY, Fluid WBC 0.348, Fluid RBC 542, Fluid Tot Cell Count 0.886 H , Fld Polynuclear WBCs # 0.006, Fld Polynuclear WBCs % 1.7, Fluid Mononuclear WBCs 0.342, Fld Mononuclear WBCs % 98.3, Fluid Lymphocytes 14, Fluid Monocytes 8, Fld Mesothelial Cells 78, Fl Pathologist Comment May follow, Fluid Comment 2 SEE COMMENT 08/18/21 04:56: Sodium 140, Potassium 3.4 L, Chloride 109 H, Carbon Dioxide 27.0, Anion Gap 4 L, BUN 13, Creatinine 0.80, Estim Creat Clear Calc 54.71, Est GFR (MDRD) Af Amer 92, Est GFR (MDRD) Non-Af 76, BUN/Creatinine Ratio 16.2, Glucose 98, Calcium 9.4 Radiography Diagnostic Testing: Radiology Impression Thoracentesis Ultrasound 08/17/21 05:00 IMPRESSION: Successful ultrasound-guided diagnostic and therapeutic thoracentesis. Electronically Signed: Winston Salcedo, at 15:03 EDT , Chest X-Ray 08/17/21 14:05 IMPRESSION: Support devices: None. Minimal residual right-sided pleural effusion status post thoracentesis. Aeration of the lungs is unchanged with no sizable pneumothorax. Heart size is stable. Bones and soft tissues are unchanged. Electronically Signed: Winston Salcedo, at 14:46 EDT , D/C Instructions Discharge Diet: Low fat / Low cholesterol and 8 Cup Fluid Restriction Call your doctor if you observe: Swelling in the ankles Please Follow Up With: Cardiology When: 2-4 weeks Meaningful Use Info Meaningful Use Diagnoses (Choose all that apply): CHF CHF REENA/ARB ordered at discharge?: No Reason REENA/ARB not ordered?: Allergy Documented LVEF (%): 60 Discharge Plan Admission Admit Date/Time: 08/17/21 03:54 Primary Reason for Your Visit: pleural effusion. CHF Attending Provider: Graeme Pierce Primary Care Provider: Vinayak Diane Consulting Providers: Yosi Feliz Instructions Patient Instructions: Thoracentesis Dc, Heart Failure Meds, Heart Failure Signs of Flare-Up, Heart Failure: Tracking Your Weight, Heart Failure Dc, Heart Failure Discharge Orders/Prescriptions Prescriptions: Continued aspirin [Adult Aspirin Regimen] 81 mg tablet,delayed release (DR/EC) 81 mg PO DAILY RF: 0 levalbuterol tartrate 45 mcg/actuation HFA aerosol inhaler 2 inh inhalation Q4H PRN (Reason: Wheezing) RF: 0 lorazepam [Ativan] 0.5 mg tablet 0.5 mg PO QHS RF: 0 metoprolol tartrate 50 mg tablet 50 mg PO BID RF: 0 Asmanex Twisthaler 220 mcg/ actuation (30) aerosol powdr breath activated 1 inh inhalation QPM RF: 0 spironolactone 25 mg tablet 12.5 mg PO DAILY RF: 0 Changed furosemide 20 mg tablet 40 mg PO DAILY 30 Days Qty: 60 RF: 0 Discontinued amlodipine 5 mg tablet 5 mg PO DAILY RF: 0 lorazepam 0.5 mg Tablet 0.5 mg PO Q6H PRN PRN (Reason: anxiety or SOB) RF: 0 Referrals / Follow Up: [facility] [Provider Group] - None Vinayak Diane MD [Primary Care Provider] - Within 2 Weeks Disposition Disposition (needs filled in before D/C Order can be placed): Home, Self Care Charges/Coding Visit Charges OBSV E&M: 21170 Observation care discharge
[2021-08-18 13:01] LABS: Pathologist Comment/Body Fluid Reviewed
== END 2021-08-18 12:15 | disposition home or self-care (01) ==
LOC: ED 08-17 04:16 → PCU 08-17 04:28
PROVIDERS: Admitting Provider Hospitalist; Emergency Provider Emergency Medicine; PCP Family Medicine
DX: J90 Pleural effusion, not elsewhere classified (principal); I11.0 Hypertensive heart disease with heart failure; I50.31 Acute diastolic (congestive) heart failure; I27.20 Pulmonary hypertension, unspecified; I48.0 Paroxysmal atrial fibrillation; E78.5 Hyperlipidemia, unspecified; M79.602 Pain in left arm; E66.9 Obesity, unspecified; R11.2 Nausea with vomiting, unspecified; Z68.31 Body mass index [BMI] 31.0-31.9, adult; Z79.899 Other long term (current) drug therapy; Z79.82 Long term (current) use of aspirin; J45.909 Unspecified asthma, uncomplicated; Z86.16 Personal history of COVID-19; R06.02 Shortness of breath
CPT/HCPCS: 32555; 36415; 71045; 71046; 80048; 82945; 83605; 83615; 83735; 83880; 84145; 84156; 84157; 84484; 85025; 85610; 85730; 88108; 88305; 88313; 89050; 93005; 93306; 94640; 96374; 96375; 96376; 99218; 99284; Q9957; A4216; G0378; J1940

== ENCOUNTER → 2021-09-19 | Outpatient (CLI) | payer SELFPAY | END | disposition home or self-care (01) | LOC: SL 11:43 | PROVIDERS: PCP Family Medicine; Referring Provider Nurse Practitioner Acute Care; Visit Provider Nurse Practitioner Acute Care | DX: G47.33 Obstructive sleep apnea (adult) (pediatric) (principal) | CPT/HCPCS: 95806 ==

== ENCOUNTER → 2021-11-02 | Outpatient (CLI) | payer SELFPAY ==
--- NOTE | 2021-11-03 10:08 | PFT ---
INTRODUCTION: The patient is a 66-year-old female that presents for pulmonary function studies secondary to a diagnosis of obstructive sleep apnea. Respiratory therapy reported good patient effort. Bronchodilators were used during testing. INTERPRETATION: Forced expiration spirometry demonstrates no evidence of a large airways obstructive ventilatory defect. There was no significant response to aerosolized bronchodilators. Spirograms are of good quality and plateau normally. Body plus tomography was performed and reveals lung volumes to be within normal limits. Diffusing capacity by single breath CO is reduced at 65% of predicted. IMPRESSION: Isolated mild reduction in diffusing capacity.
== END | disposition home or self-care (01) ==
PROVIDERS: PCP Family Medicine; Referring Provider Nurse Practitioner Acute Care; Visit Provider Nurse Practitioner Acute Care
DX: G47.33 Obstructive sleep apnea (adult) (pediatric) (principal)
CPT/HCPCS: 94060; 94726; 94729

== ENCOUNTER → 2024-08-11 | Outpatient (CLI) | payer SELFPAY | END | disposition home or self-care (01) | LOC: LABSPEC 13:49 | PROVIDERS: PCP Family Medicine; Referring Provider Internal Medicine Hematology & Oncology; Visit Provider Internal Medicine Hematology & Oncology | DX: C90.00 Multiple myeloma not having achieved remission (principal) | CPT/HCPCS: 86850; 86900; 86901 ==